=== PATIENT | female | born 2000 | race American Indian/Alaskan Native ===

== ENCOUNTER 2019-12-08 11:32 | Inpatient (IN) | payer SELFPAY ==
--- NOTE | 2019-12-08 12:19 | Event Note ---
ED Screening Note Date of service: 12/08/19 Time: 12:17 ED Screening Note: 19 y o f presents with mid abd pain x 1 week This initial assessment/diagnostic orders/clinical plan/treatment(s) is/are subject to change based on patients health status, clinical progression and re- assessment by fellow clinical providers in the ED. Further treatment and workup at subsequent clinical providers discretion. Patient/guardian urged not to elope from the ED as their condition may be serious if not clinically assessed and managed. Initial orders include: ua,upt acc eval
[2019-12-08] MEDS ORDERED: FAMOTIDINE 20 MG/2 ML INJ IV ONE (19:40)
[2019-12-08] MEDS ORDERED: ONDANSETRON 4 MG/2 ML INJ IV ONE (19:40)
[2019-12-08] MEDS ORDERED: MORPHINE 4 MG/1 ML INJ IV ONE (19:40)
[2019-12-08 19:59] LABS: Bilirubin,Urine NEG (Negative); Blood,Urine MOD (Negative); Color,Urine Yellow (Yellow); Mucus,Urine 3+ /HPF
[2019-12-08 20:04] LABS: RBC,Urine > 182.0 /HPF (0.0-6.0)
[2019-12-08 20:08] LABS: HCG Qualitative,Urine Negative (Negative)
[2019-12-08 21:11] LABS: Basophils % (Auto) 0.2 % (0.0-1.8); Eosinophils % (Auto) 0.1 % (0.0-4.3); Hematocrit 21.1 % (30.3-42.9); Hemoglobin 6.5 gm/dl (10.1-14.3); Lymphocytes # (Auto) 0.9 K/mm3 (1.2-5.4); Lymphocytes % (Auto) 9.4 % (13.4-35.0); Mean Corpuscular HGB Conc 31 % (30-34); Mean Corpuscular Volume 71 fl (79-97); Monocytes # (Auto) 0.7 K/mm3 (0.0-0.8); Monocytes % (Auto) 7.2 % (0.0-7.3); Platelet Count 395 K/mm3 (140-440); Red Blood Count 2.95 M/mm3 (3.65-5.03); Red Cell Distribution Width 18.8 % (13.2-15.2)
[2019-12-08 21:31] LABS: Alanine Aminotransferase 12 units/L (7-56); Albumin 3.5 g/dL (3.9-5); BUN/Creatinine Ratio 18; Blood Urea Nitrogen 7 mg/dL (7-17); Calcium 8.5 mg/dL (8.4-10.2); Hemolysis Index 0
--- NOTE | 2019-12-08 21:40 | Cat Scan Report ---
CT ABDOMEN AND PELVIS WITH CONTRAST INDICATION / CLINICAL INFORMATION: Abdominal pain. TECHNIQUE: Axial CT images were obtained through the abdomen and pelvis after 100 mL Omnipaque [address] scans at this location are performed using CT dose reduction for ALARA by means of automated exposure control. COMPARISON: None available. FINDINGS: LOWER CHEST: No significant abnormality. LIVER: No significant abnormality. BILIARY SYSTEM: No significant abnormality. PANCREAS: No significant abnormality. SPLEEN: No significant abnormality. ADRENALS: No significant abnormality. KIDNEYS and URETERS: No significant abnormality. STOMACH / BOWEL: No significant abnormality. Appendix is not initially identified, but no evidence of an acute inflammatory process in its expected location is identified. PERITONEUM: No free fluid. No free air. No fluid collection. LYMPH NODES: No adenopathy. VASCULAR STRUCTURES: No significant abnormality. URINARY BLADDER: No significant abnormality. REPRODUCTIVE ORGANS: No significant abnormality. ADDITIONAL FINDINGS: None. SKELETAL SYSTEM: No significant abnormality. IMPRESSION: 1. No significant abnormality. Please note the appendix is not directly visualized. Signer Name: Shahram Calabrese MD Signed: 12/08/2019 9:35 PM Workstation Name: [id number]
[2019-12-08] MEDS ORDERED: cefTRIAXone/NS 1 GM/50 ML 1 GM/50 ML BAG IV ONE (21:42)
--- NOTE | 2019-12-08 21:57 | Emergency Department Report ---
ED Abdominal Pain HPI - General Chief Complaint: Urogenital-Female Stated Complaint: CRAMPS Source: patient Mode of arrival: Ambulatory Limitations: No Limitations - History of Present Illness Initial Comments: Patient is sent the past 19-year-old -Cym[place] female with a history of menotrorrhagia who presents to the ED with complaint of acute onset persistent epigastric pain that radiates to the right upper quadrant and left upper quadrant consistent with intractable nausea and vomiting for the last 1 week, worse in the last 2 days. Patient denies dizziness, syncope, chest pain, shortness of breath, diarrhea, fever, chills, cough, dysuria, urinary frequency and urgency, vaginal bleeding, vaginal discharge or headache. Patient states that her LMP was 11/17/2019. The patient states that she has not been able to keep anything down in the last 2 days because of persistent nausea and vomiting on the significant. MD Complaint: abdominal pain, other (nausea and vomiting) -: Sudden, week(s) (1) Location: LUQ, RUQ, epigastric Radiation: LUQ, RUQ, epigastric Migration to: no migration Severity: severe Severity scale (0 -10): 10 Quality: cramping, aching, sharp Consistency: constant Improves With: nothing Worsens With: vomiting Associated Symptoms: denies other symptoms, nausea, vomiting, anorexia. denies: diarrhea, fever, chills, constipation, dysuria, hematemesis, hematochezia, melena, hematuria - Related Data LMP Date: 11/17/19 Allergies Allergy/AdvReac Type Severity Reaction Status Date / Time No Known Allergies Allergy Unverified 12/08/19 11:35 ED Review of Systems ROS: Stated complaint: CRAMPS Other details as noted in HPI Constitutional: denies: chills, fever Eyes: denies: eye pain, eye discharge, vision change ENT: denies: ear pain, throat pain Respiratory: denies: cough, shortness of breath, wheezing Cardiovascular: denies: chest pain, palpitations Endocrine: no symptoms reported Gastrointestinal: abdominal pain, nausea, vomiting. denies: diarrhea Genitourinary: abnormal menses (Menometrorrhagia). denies: urgency, dysuria, discharge Musculoskeletal: denies: back pain, joint swelling, arthralgia Skin: denies: rash, lesions Neurological: denies: headache, weakness, paresthesias Psychiatric: denies: anxiety, depression Hematological/Lymphatic: denies: easy bleeding, easy bruising ED Past Medical Hx - Past Medical History Previous Medical History?: No - Surgical History Past Surgical History?: No - Social History Smoking Status: Current Every Day Smoker Substance Use Type: None ED Physical Exam - General Limitations: No Limitations General appearance: alert, in no apparent distress - Head Head exam: Present: atraumatic, normocephalic, normal inspection - Eye Eye exam: Present: normal appearance, PERRL, EOMI. Absent: scleral icterus, conjunctival injection, nystagmus, periorbital swelling, periorbital tenderness Pupils: Present: normal accommodation - ENT ENT exam: Present: normal exam, normal orophraynx, mucous membranes moist, TM's normal bilaterally, normal external ear exam - Neck Neck exam: Present: normal inspection, full ROM. Absent: tenderness, lymphadenopathy - Respiratory Respiratory exam: Present: normal lung sounds bilaterally. Absent: respiratory distress, wheezes, rales, rhonchi, chest wall tenderness, accessory muscle use, prolonged expiratory - Cardiovascular Cardiovascular Exam: Present: regular rate, normal rhythm, normal heart sounds. Absent: systolic murmur, diastolic murmur, rubs, gallop - GI/Abdominal GI/Abdominal exam: Present: soft, tenderness (Palpable diffuse upper abdominal tenderness), normal bowel sounds. Absent: guarding, rebound - Bi-manual exam: Present: other (patient declined pelvic exam) - Extremities Exam Extremities exam: Present: normal inspection, full ROM, normal capillary refill - Back Exam Back exam: Present: normal inspection, full ROM. Absent: tenderness, CVA tenderness (R), CVA tenderness (L), muscle spasm, paraspinal tenderness, felicita tebral tenderness - Neurological Exam Neurological exam: Present: alert, oriented X3, CN II-XII intact, normal gait, reflexes normal. Absent: motor sensory deficit - Psychiatric Psychiatric exam: Present: normal affect, normal mood - Skin Skin exam: Present: warm, dry, intact, normal color. Absent: rash ED Course Vital Signs 12/08/19 12/08/19 12:17 21:31 Temperature 98.3 F 98.6 F Pulse Rate 86 86 Respiratory 18 16 Rate Blood Pressure 154/86 Blood Pressure 136/78 [Right] O2 Sat by Pulse 100 97 Oximetry ED Medical Decision Making - Lab Data Result diagrams: 12/08/19 20:41 12/08/19 20:41 - Radiology Data Radiology results: report reviewed, image reviewed Findings [facility] [address] [place] [address] Cat Scan Report Signed Patient: ANALIA CHI MR#: [id number] : 2000 Acct:[id number] Age/Sex: 19 / F ADM Date: 12/08/19 Loc: ED Attending Dr: Ordering Physician: TIANNA PARSONS Date of Service: 12/08/19 Procedure(s): CT abdomen pelvis w con Accession Number(s): [id number] cc: TIANNA PARSONS CT ABDOMEN AND PELVIS WITH CONTRAST INDICATION / CLINICAL INFORMATION: Abdominal pain. TECHNIQUE: Axial CT images were obtained through the abdomen and pelvis after 100 mL Omnipaque [address] scans at this location are performed using CT dose reduction for ALARA by means of automated exposure control. COMPARISON: None available. FINDINGS: LOWER CHEST: No significant abnormality. LIVER: No significant abnormality. BILIARY SYSTEM: No significant abnormality. PANCREAS: No significant abnormality. SPLEEN: No significant abnormality. ADRENALS: No significant abnormality. KIDNEYS and URETERS: No significant abnormality. STOMACH / BOWEL: No significant abnormality. Appendix is not initially identified, but no evidence of an acute inflammatory process in its expected location is identified. PERITONEUM: No free fluid. No free air. No fluid collection. LYMPH NODES: No adenopathy. VASCULAR STRUCTURES: No significant abnormality. URINARY BLADDER: No significant abnormality. REPRODUCTIVE ORGANS: No significant abnormality. ADDITIONAL FINDINGS: None. SKELETAL SYSTEM: No significant abnormality. IMPRESSION: 1. No significant abnormality. Please note the appendix is not directly visua lized. Signer Name: Shahram Calabrese MD Signed: 12/08/2019 9:35 PM Workstation Name: [id number] Transcribed By: DMB Dictated By: Shahram Calabrese MD Electronically Authenticated By: Shahram Calabrese MD Signed Date/Time: 12/08/192134 DD/ 31 TD/TT: - Medical Decision Making This is a nulliparous 19-year-old female who presented to the ED with complaint of acute onset persistent diffuse of upper abdominal pain with nausea and vomiting for one week, worse in the last 2 days. In the ED, patient is alert and oriented 3 and is not in distress but appears in significant pain. Patient was treated for nausea and vomiting, also given pain medications and antacids. Patient also received normal saline 1 L IV bolus and Rocephin 1 g IV 1 for UTI. Lab test results were reviewed and urinalysis show significant urinary tract infection with hematuria. The H&H was 6.5 and 21.1 with MCV of 71.1. The rest of the lab test results were nonactionable. Patient's case was discussed with the ED attending physician Dr. Kota Willis who advised that the patient be admitted for blood transfusion. I discussed the patient's case with Dr. Mo Lamb, the [employer] belt conveyor drier who admitted the patient to the hospital for further evaluation and blood transfusion. - Differential Diagnosis Gallstones; Gastritis; UTI; Gastroenteritis; Dysmenorrhea Critical care attestation.: If time is entered above; I have spent that time in minutes in the direct care of this critically ill patient, excluding procedure time. ED Disposition Clinical Impression: Anemia due to blood loss, chronic, Abdominal pain, acute, epigastric, Nausea and vomiting in adult, Acute urinary tract infection, Menometrorrhagia Disposition: OP ADMIT IP TO THIS HOSP Is pt being admited?: Yes Does the pt Need Aspirin: No Condition: Stable Referrals: PRIMARY CARE, [Primary Care Provider] - 3-5 Days Time of Disposition: 22:15 Print Language: JAPANESE
--- NOTE | 2019-12-09 00:44 | Short Stay Summary ---
Short Stay Documentation Date of service: 12/09/19 Narrative H&P: Patient is a 19-year-old -C[place] female G0 LMP 11/17/19 with a history of menotrorrhagia who presented to the ED with complaint of acute onset persistent epigastric pain that radiates to the right upper quadrant and left upper quadrant consistent with intractable nausea and vomiting for the last 1 week, worse in the last 2 days. She denies dizziness, syncope, chest pain, shortness of breath, diarrhea, fever, chills, cough, dysuria, urinary frequency and urgency, vaginal bleeding, vaginal discharge or headache. She has not been able to keep anything down in the last 2 days because of persistent nausea and vomiting. Her Abdominal/Pelvic CT Scan was unremarkable, but her H/H was 6.5/21.1 so she will be admitted for a blood transfusion. - History Principal diagnosis: Symptomatic anemia H&P: obtained from office Past Medical History: No medical history Past Surgical History: No surgical history Social history: no significant social history, single - Allergies and Medications Current Medications: Allergies No Known Allergies Allergy (Verified 12/08/19 23:01) Home Medications Medication Instructions Recorded Confirmed Last Taken Type No Known Home Medications [No 12/09/19 12/09/19 Unknown History Reported Home Medications] - Physical exam General appearance: no acute distress Integumentary: no rash HEENT: Atraumatic Lungs: Clear to auscultation Heart: Regular rate Gastrointestinal: normal Female Genitourinary: deferred Extremities: no ischemia, No edema Neurological: Normal gait, Normal speech - Hospital course Hospital course: Unremarkable. She received 2 units of PRBC's and her H/H improved to 9.5/29.9 She is feeling well and ready to go home. She will follow up in the office in 1 week for BP check. - Disposition Condition at discharge: Good Disposition: DC-01 TO HOME OR SELFCARE - Discharge Diagnoses (1) Anemia due to blood loss, chronic Status: Resolved (2) Menometrorrhagia Status: Chronic Short Stay Discharge Plan Activity: no restrictions Diet: regular Additional Instructions: Call your doctor immediately for: * Fever > 100.5 * Heavy vaginal bleeding ( >1 pad per hour) * Severe persistent headache * Shortness of breath Follow up with: KRISTINE WELLS MD [Primary Care Provider] - 3-5 Days DAMARIS STILES MD [Staff Physician] - 7 Days Forms: [facility] Discharge Summary, Discharge Signature Page Prescriptions: Ferrous Sulfate [Feosol 325 MG tab] 325 mg PO BID #60 tablet
[2019-12-09] MEDS ORDERED: SODIUM CHLORIDE 0.9% 500 ML 500 ML IV ONE (00:45)
[2019-12-09] MEDS ORDERED: ACETAMINOPHEN 325 MG TAB PO ONE (00:45)
[2019-12-09] MEDS ORDERED: ACETAMINOPHEN 325 MG TAB PO PRN (00:45)
[2019-12-09] MEDS ORDERED: diphenhydrAMINE 50 MG/ML VIAL IV ONE (00:45)
[2019-12-09] MEDS ORDERED: DOCUSATE SODIUM 100 MG CAP PO PRN (00:45)
[2019-12-09] MEDS ORDERED: LACTATED RINGERS 1,000 ML IV SCH (01:00)
[2019-12-09] MEDS ORDERED: PRENATAL VIT27-FE FUMARATE-FOLIC ACID VIT TAB PO SCH (10:00)
[2019-12-09 15:35] LABS: Hematocrit 29.9 % (30.3-42.9); Hemoglobin 9.5 gm/dl (10.1-14.3)
[2019-12-09 18:03] VITALS: BP 136/90
== END 2019-12-09 18:53 | disposition home or self-care (01) | DRG 760 ==
LOC: ED 11:32 → OBSVTOIN 22:28 → OB 22:28
PROVIDERS: ADMIT Obstetrics & Gynecology; ATTEND Obstetrics & Gynecology
PROC: 30233N1 Transfusion of Nonautologous Red Blood Cells into Peripheral Vein, Percutaneous Approach (ICD-10-PCS; principal; 2019-12-09)
DX: N92.1 Excessive and frequent menstruation with irregular cycle (principal); N39.0 Urinary tract infection, site not specified; D50.0 Iron deficiency anemia secondary to blood loss (chronic); F17.200 Nicotine dependence, unspecified, uncomplicated
CPT/HCPCS: 36415; 74177; 80053; 81001; 81025; 83690; 84703; 85014; 85018; 85025; 86850; 86900; 86901; 86920; G0378; J0696; J1200; J2270; J2405; J7040; J7120; P9016; Q9967